=== PATIENT | male | born 1955 | race Caucasian/White ===

== ENCOUNTER 2016-12-06 10:12 | Emergency (ER) | payer OTHER ==
[~2016-12-06] VITALS: Ht 170.2 cm; Wt 79.4 kg
--- NOTE | 2016-12-06 10:21 | ED MVC/FALL/TRAUMA COMPLAINT ---
History of Present Illness General Chief Complaint: Fall Stated Complaint: S/P FALL L HIP PAIN L SHOULDER MICHELLE 11/07/16 Source: patient, old records Exam Limitations: no limitations Vital Signs & Intake/Output Vital Signs & Intake/Output Vital Signs Date Time Temp Pulse Resp B/P B/P Pulse O2 O2 Flow FiO2 Mean Ox Delivery Rate 12/06 1247 97.5 80 18 124/80 98 Room Air 12/06 1015 98.2 88 18 122/74 97 Room Air Allergies Coded Allergies: No Known Allergies (12/06/16) Reconcile Medications Cyclobenzaprine HCl 10 MG TABLET 1 TAB PO Q8P PAIN OR SPASM Triage Note: PT BIBA FROM HOME S/P TRIP AND FALL FROM STANDING POSITION. PT HAS CHRONIC PAIN AND IS COMPLAINING OF MULTPLE AREAS OF PAIN INCLUDING L ARM AND L HIP. PT DID NOT HIT HEAD, -LOC, -THINNERS. Triage Nurses Notes Reviewed? yes HPI: Patient states that he had a mechanical trip and fall and fell on his back as well as his left shoulder. Patient states he has chronic pain and this fall exacerbated the pain. Patient is not sure if he hit his head but there is no loss of conscious. Patient is complaining of a slight headache and neck pain. The pain to his head is throbbing pain in the occipital area. There is no radiation. There are no aggravating or mitigating factors. He rates the pain is 3 out of 10. There is no blurry vision. There is no nausea or vomiting. The pain in his neck is in the left side of his neck and increases with movement. There is no radiation of the pain. The pain is aching in nature. He rates the pain as 5 out of 10. Pain in his left shoulder is sharp and stabbing and is an acute exacerbation of his chronic pain. Pain increases with movement. There is no radiation. The pain is 8 out of 10. The pain in his low back is also an acute exacerbation of his chronic pain. The pain is throbbing in nature. The pain increased with movement. There is no radiation. He rates the pain as 8 out of 10. There is no incontinence of bowel or bladder. There is no weakness or numbness. Past History Medical History Any Pertinent Medical History? see below for history Musculoskeletal: chronic back pain Surgical History Surgical History: non-contributory Psychosocial History Tobacco Use: Current Daily Use Daily Tobacco Use Amount/Type: => 5 Cigarettes daily ETOH Use: occasional use Illicit Drug Use: denies illicit drug use Family History Hx Contributory? No Review of Systems Review of Systems Constitutional: Reports: no symptoms. Eyes: Reports: no symptoms. Ears, Nose, Throat, Mouth: Reports: no symptoms. Respiratory: Reports: no symptoms. Cardiovascular: Reports: no symptoms. Gastrointestinal/Abdominal: Reports: no symptoms. Genitourinary: Reports: no symptoms. Musculoskeletal: Reports: see HPI, back pain, joint pain. Skin: Reports: no symptoms. Neurological/Psychological: Reports: see HPI, headache. All Other Systems: Reviewed and Negative Physical Exam Physical Exam General Appearance: well developed/nourished, alert, awake, anxious, mild distress Head: atraumatic Eyes: Bilateral: PERRL, EOMI. Ears, Nose, Throat, Mouth: hearing grossly normal, moist mucous membrane Neck: normal inspection, supple, full range of motion Respiratory: normal breath sounds, chest non-tender, no respiratory distress, lungs clear Cardiovascular: regular rate/rhythm, normal peripheral pulses Gastrointestinal: normal bowel sounds, soft, non-tender, no organomegaly Back: normal inspection, normal range of motion Extremities: normal range of motion Neurologic/Psych: no motor/sensory deficits, awake, alert, oriented x 3, normal gait, normal mood/affect Skin: intact, normal color, warm/dry Core Measures ACS in differential dx? No Severe Sepsis Present: No Septic Shock Present: No Progress Differential Diagnosis: C/T/L spine injury, ICH Plan of Care: Orders Procedure Date/time Status XRY-SHOULDER COMPLETE-LEFT 12/06 102 Active XRY-LUMBOSACRAL SPINE 4 VIEWS 12/06 1021 Active Diagnostic Imaging: Viewed by Me: Radiology Read, CT Scan. Discussed w/RAD: Radiology Read, CT Scan. Radiology Impression: PATIENT: RUSS MCKEON PRESENT AGE : 61 PATIENT ACCOUNT NO: [id number] : 54 LOCATION: [facility] ORDERING PHYSICIAN: AKILA COELHO MD SERVICE DATE: 12/06/16-102 EXAM TYPE: CAT - CT CERV SPINE WO IV CONTRAST; CT HEAD WO IV CONTRAST EXAMINATION: CT HEAD W/O IV CONTRAST CT CERVICAL SPINE W/O IV CONTRAST CLINICAL INFORMATION: 61-year-old male with pain after fall. Head injury. Evaluate for intracranial hemorrhage and fracture. COMPARISON: None TECHNIQUE: Head - Contiguous axial imaging of the head was performed from the skull base to the vertex without the administration of intravenous contrast, and axial images are reconstructed at 0.625 mm, 2.5 mm and 5 mm slice thickness. Cervical spine - A volumetric, helical CT acquisition of the cervical spine was obtained without contrast; in addition to the standard set of axial images, multiplanar reformatted images were provided in the coronal and sagittal imaging planes. DLP: 967 mGy-cm (total) FINDINGS: HEAD: No evidence of acute intracranial hemorrhage, major vascular territory infarction, focal mass effect or midline shift. Henderson to white matter differentiation is well preserved. The ventricles have normal size and configuration. There are no extra-axial fluid collections. There is mild atrophy of the frontal lobes associated with symmetric prominence of cerebral spinal fluid spaces overlying the frontal lobes. The calvarium is intact and the visualized paranasal sinuses, mastoid air cells and middle ear cavities are clear. The temporomandibular joints are unremarkable. The visualized orbits and globes are intact. CERVICAL SPINE: The craniocervical junction is intact. The occipital condyles, atlas, axis and atlantoaxial articulation are intact. The vertebral body heights are maintained. No acute fractures in the anterior or posterior elements. There is no prevertebral soft tissue swelling. At C2-C3 and C4-C5, the left-sided facet osteoarthritis is associated with minimal anterolisthesis of C2 on C3 and of C4 on C5 otherwise, vertebral alignment is maintained. Degenerative disc space narrowing is most pronounced at C5-C6 and C6-C7. There are posterior disc- osteophyte complexes at these levels producing mild indentation upon the ventral surface of the thecal sac. No evidence of high-grade central canal stenosis. The uncovertebral joint hypertrophy at C5-C6 and C6-C7 produce moderate right and mild left foraminal stenosis at C5-C6 and mild bilateral foraminal stenosis at C6-C7. No evidence of epidural hematoma or focal fluid collection in the neck. There is paraseptal emphysema at the visualized lung apices. IMPRESSION: 1. No acute intracranial pathology. 2. No acute fractures within the degenerated cervical spine. 3. Paraseptal emphysema at the visualized lung apices. DICTATED BY: NONA HUNG MD DATE/TIME DICTATED:12/06/161100 CATALYST OPERATOR CHIEF: RAD.ARREOLA DATE/TIME TRANSCRIBED:12/06/161100 CONFIDENTIAL, DO NOT COPY WITHOUT APPROPRIATE AUTHORIZATION. <Electronically signed in Other Vendor System> SIGNED BY: NONA HUNG MD 12/06/16 1113, PATIENT: RUSS MCKEON PRESENT AGE: 61 PATIENT ACCOUNT NO: [id number] : LOCATION: [facility] ORDERING PHYSICIAN: AKILA COELHO MD SERVICE DATE: 12/06/16 EXAM TYPE: RAD - XRY-SHOULDER COMPLETE-LEFT EXAMINATION: XR SHOULDER, LEFT CLINICAL INFORMATION: Fall with left shoulder pain. COMPARISON: None TECHNIQUE: Three views of the left shoulder. FINDINGS: Normal alignment with no fracture. Mild acromioclavicular and glenohumeral joint osteoarthritis. There is a punctate metallic density projecting along the anterior aspect of the humeral head. Correlate clinically. IMPRESSION: Normal alignment with no fracture demonstrated. There is a punctate metallic density projecting along the anterior aspect of the humeral head. Correlate clinically. DICTATED BY: KRUNAL JESUS MD DATE/TIME DICTATED:12/06/161327 CATALYST OPERATOR CHIEF: ARREOLA DATE/TIME TRANSCRIBED:12/06/161327 CONFIDENTIAL, DO NOT COPY WITHOUT APPROPRIATE AUTHORIZATION. <Electronically signed in Other Vendor System> SIGNED BY: KRUNAL JESUS MD 12/06/16 1339, PATIENT: RUSS MCKEON PRESENT AGE: 61 PATIENT ACCOUNT NO: [id number] : 53 LOCATION: [facility] ORDERING PHYSICIAN: AKILA COELHO MD SERVICE DATE: 12/06/16 EXAM TYPE: RAD - XRY-LUMBOSACRAL SPINE 4 VIEWS EXAMINATION: XR LUMBOSACRAL SPINE CLINICAL INFORMATION: Pain after fall. COMPARISON: None TECHNIQUE: Lumbosacral spine, 4 views FINDINGS: There is normal lordotic curvature lumbar spine. The lumbar vertebra have well preserved height and alignment. No acute fractures within anterior or posterior elements. There is mild facet arthropathy of the lower lumbar spine. There is mild multilevel degenerative disc space narrowing and osteophyte formation of the lower thoracic and lumbar spine. The sacrum and sacroiliac joints are intact. No evidence of paraspinal soft tissue swelling. Atherosclerotic calcification of the aorta and iliac arteries. IMPRESSION: No evidence of acute fracture or traumatic subluxation of the degenerated lumbar spine. DICTATED BY: NONA HUNG MD DATE/TIME DICTATED:12/06/161328 CATALYST OPERATOR CHIEF:SOFYA DATE/TIME TRANSCRIBED:12/06/161328 CONFIDENTIAL, DO NOT COPY WITHOUT APPROPRIATE AUTHORIZATION. <Electronically signed in Other Vendor System> SIGNED BY: NONA HUNG MD 12/06/16 1334 Departure Departure Disposition: HOME OR SELF CARE Condition: Stable Clinical Impression Primary Impression: Head injury Qualifiers: Encounter type: initial encounter Qualified Code: S09.90XA - Unspecified injury of head, initial encounter Secondary Impressions: Cervical strain Qualifiers: Encounter type: initial encounter Qualified Code: S16.1XXA - Strain of muscle, fascia and tendon at neck level, initial encounter Low back pain Qualifiers: Chronicity: acute Back pain laterality: bilateral Sciatica presence : without sciatica Qualified Code: M54.5 - Low back pain Shoulder injury Qualifiers: Encounter type: initial encounter Laterality: left Qualified Code: S49.92XA - Unspecified injury of left shoulder and upper arm, initial encounter Additional Instructions: USE MOIST HEAT RETURN NEEDED Departure Forms: Customer Survey General Discharge Information Prescriptions: Current Visit Scripts Cyclobenzaprine HCl 1 TAB PO Q8P #20 TAB
--- NOTE | 2016-12-06 11:13 | CT SCAN REPORT ---
EXAMINATION: CT HEAD W/O IV CONTRAST CT CERVICAL SPINE W/O IV CONTRAST CLINICAL INFORMATION: 61-year-old male with pain after fall. Head injury. Evaluate for intracranial hemorrhage and fracture. COMPARISON: None TECHNIQUE: Head - Contiguous axial imaging of the head was performed from the skull base to the vertex without the administration of intravenous contrast, and axial images are reconstructed at 0.625 mm, 2.5 mm and 5 mm slice thickness. Cervical spine - A volumetric, helical CT acquisition of the cervical spine was obtained without contrast; in addition to the standard set of axial images, multiplanar reformatted images were provided in the coronal and sagittal imaging planes. DLP: 967 mGy-cm (total) FINDINGS: HEAD: No evidence of acute intracranial hemorrhage, major vascular territory infarction, focal mass effect or midline shift. Henderson to white matter differentiation is well preserved. The ventricles have normal size and configuration. There are no extra-axial fluid collections. There is mild atrophy of the frontal lobes associated with symmetric prominence of cerebral spinal fluid spaces overlying the frontal lobes. The calvarium is intact and the visualized paranasal sinuses, mastoid air cells and middle ear cavities are clear. The temporomandibular joints are unremarkable. The visualized orbits and globes are intact. CERVICAL SPINE: The craniocervical junction is intact. The occipital condyles, atlas, axis and atlantoaxial articulation are intact. The vertebral body heights are maintained. No acute fractures in the anterior or posterior elements. There is no prevertebral soft tissue swelling. At C2-C3 and C4-C5, the left-sided facet osteoarthritis is associated with minimal anterolisthesis of C2 on C3 and of C4 on C5 otherwise, vertebral alignment is maintained. Degenerative disc space narrowing is most pronounced at C5-C6 and C6-C7. There are posterior disc-osteophyte complexes at these levels producing mild indentation upon the ventral surface of the thecal sac. No evidence of high-grade central canal stenosis. The uncovertebral joint hypertrophy at C5-C6 and C6-C7 produce moderate right and mild left foraminal stenosis at C5-C6 and mild bilateral foraminal stenosis at C6-C7. No evidence of epidural hematoma or focal fluid collection in the neck. There is paraseptal emphysema at the visualized lung apices. IMPRESSION: 1. No acute intracranial pathology. 2. No acute fractures within the degenerated cervical spine. 3. Paraseptal emphysema at the visualized lung apices.
--- NOTE | 2016-12-06 13:34 | RADIOLOGY REPORT ---
EXAMINATION: XR LUMBOSACRAL SPINE CLINICAL INFORMATION: Pain after fall. COMPARISON: None TECHNIQUE: Lumbosacral spine, 4 views FINDINGS: There is normal lordotic curvature lumbar spine. The lumbar vertebra have well preserved height and alignment. No acute fractures within anterior or posterior elements. There is mild facet arthropathy of the lower lumbar spine. There is mild multilevel degenerative disc space narrowing and osteophyte formation of the lower thoracic and lumbar spine. The sacrum and sacroiliac joints are intact. No evidence of paraspinal soft tissue swelling. Atherosclerotic calcification of the aorta and iliac arteries. IMPRESSION: No evidence of acute fracture or traumatic subluxation of the degenerated lumbar spine.
--- NOTE | 2016-12-06 13:39 | RADIOLOGY REPORT ---
EXAMINATION: XR SHOULDER, LEFT CLINICAL INFORMATION: Fall with left shoulder pain. COMPARISON: None TECHNIQUE: Three views of the left shoulder. FINDINGS: Normal alignment with no fracture. Mild acromioclavicular and glenohumeral joint osteoarthritis. There is a punctate metallic density projecting along the anterior aspect of the humeral head. Correlate clinically. IMPRESSION: Normal alignment with no fracture demonstrated. There is a punctate metallic density projecting along the anterior aspect of the humeral head. Correlate clinically.
[2016-12-06] MEDS ORDERED: CYCLOBENZAPRINE10 M1 PO (14:09)
[2016-12-06 14:36] VITALS: BP 130/80
== END 2016-12-06 14:36 ==
LOC: ERH 10:12 → EDBD 10:12 → ERH 11:25
DX: S09.90XA Unspecified injury of head, initial encounter (principal); S16.1XXA Strain of muscle, fascia and tendon at neck level, initial encounter; M54.5 Low back pain; S49.92XA Unspecified injury of left shoulder and upper arm, initial encounter; W01.0XXA Fall on same level from slipping, tripping and stumbling without subsequent striking against object, initial encounter; Y93.9 Activity, unspecified; Y92.9 Unspecified place or not applicable
CPT/HCPCS: 72110; 73030-LT; 96372; J1885